=== PATIENT | male | born 1995 | race Caucasian/White ===

== ENCOUNTER 2021-10-08 09:07 | Emergency (ER) | payer MEDICAID | END 2021-10-08 10:30 | disposition home or self-care (01) | LOC: KA.ED 09:07 | DX: S61.216A Laceration without foreign body of right little finger without damage to nail, initial encounter (principal); S00.33XA Contusion of nose, initial encounter; Z88.8 Allergy status to other drugs, medicaments and biological substances; W10.9XXA Fall (on) (from) unspecified stairs and steps, initial encounter | CPT/HCPCS: 12001; 70160; 73130-RT; 73610-RT; 99282; 99283-25 ==

== ENCOUNTER 2022-06-13 08:21 | Emergency (ER) | payer MEDICAID ==
[2022-06-13 09:37] LABS: BARBITURATE SCREEN,URINE NEGATIVE (NEGATIVE); TCA SCREEN,URINE NEGATIVE (NEGATIVE); THC SCREEN,URINE 50 NG/ML POSITIVE (NEGATIVE)
[2022-06-13 09:38] LABS: BENZODIAZEPINES SCREEN,URINE NEGATIVE (NEGATIVE)
[2022-06-13 09:48] LABS: ANION GAP 12.4 mmol/L (5-15); CHLORIDE,CL 106 mmol/L (98-107); SODIUM,NA 143 mmol/L (136-145)
[2022-06-13 09:55] LABS: ESTIMATED GFR 112 mL/min (>=60)
[2022-06-13 09:56] LABS: ACETAMINOPHEN < 0.0 ug/mL (10.0-30.0)
== END 2022-06-13 12:15 ==
LOC: KA.ED 08:21
DX: R45.851 Suicidal ideations (principal); F41.8 Other specified anxiety disorders; F10.920 Alcohol use, unspecified with intoxication, uncomplicated; Z88.8 Allergy status to other drugs, medicaments and biological substances
CPT/HCPCS: 36415; 80053; 80143; 80305-QW; 80307; 81001; 85025; 99284; 99285